=== PATIENT | female | born 1995 | race African-American/Black ===

== ENCOUNTER 2018-07-13 06:13 | Emergency (ER) | payer OTHER ==
[~2018-07-13] VITALS: Ht 162.6 cm; Wt 64.9 kg
[~2018-07-13 06:13] MED LIST: AUG500 PO; CLINDAMYCIN HC300 MG PO; LEVAQUIN750 MG PO; PREDNISONE20 MG; PROVENTIL0.09 MG/A1; SINGULAIR10 MG
[2018-07-13 06:20] VITALS: Ht 162.6 cm; Wt 64.9 kg
[2018-07-13 10:07] VITALS: BP 135/84
== END 2018-07-13 10:00 | disposition home or self-care (01) ==
LOC: ED 06:13
DX: S06.0X0A Concussion without loss of consciousness, initial encounter (principal); S13.4XXA Sprain of ligaments of cervical spine, initial encounter; S93.602A Unspecified sprain of left foot, initial encounter; S23.3XXA Sprain of ligaments of thoracic spine, initial encounter; S33.5XXA Sprain of ligaments of lumbar spine, initial encounter; J45.909 Unspecified asthma, uncomplicated; Z88.1 Allergy status to other antibiotic agents; Z91.013 Allergy to seafood; V43.52XA Car driver injured in collision with other type car in traffic accident, initial encounter; Y93.I9 Activity, other involving external motion; Y92.488 Other paved roadways as the place of occurrence of the external cause; Y99.8 Other external cause status

== ENCOUNTER 2018-12-18 06:24 | Emergency (ER) | payer OTHER ==
[~2018-12-18] VITALS: Ht 162.6 cm; Wt 66.7 kg
[2018-12-18 06:27] VITALS: Ht 162.6 cm; Wt 66.7 kg
[2018-12-18 07:22] LABS: microscopic required? NO
[2018-12-18 08:03] LABS: CALCIUM 8.8 mg/dL (8.5-10.1); CARBON DIOXIDE 26.9 mmol/L (21-32); CHLORIDE SERUM 109 mmol/L (98-107); CREATININE SERUM 1.1 mg/dL (0.6-1.0); GFR1 > 60 mL/min; GLUCOSE SERUM 89 mg/dL (74-106); POTASSIUM SERUM 3.8 mmol/L (3.5-5.1); SODIUM SERUM 145 mmol/L (136-145)
[2018-12-18 08:04] LABS: urine erythrocyte NEGATIVE (NEGATIVE)
[2018-12-18 08:08] LABS: ALBUMIN 3.4 g/dL (3.4-5.0); ALKALINE PHOSPHATASE 51 U/L (46-116); ALT/SGPT 29 U/L (14-59); AST/SGOT 15 U/L (15-37); BILIRUBIN TOTAL 0.2 mg/dL (0.20-1.00); LIPASE 128 IU/L (73-393)
[2018-12-18 08:10] LABS: BASOPHIL % 0.4 % (0-2); PLATELET COUNT 326 x10^3mcL (130-400); RED CELL DISTRIBUTION WIDTH 13.2 % (11.5-14.5)
[2018-12-18 08:24] LABS: AMPHETAMINE QUAL UR NONE DETECTED (See below)
[2018-12-18 09:20] VITALS: BP 134/92
== END 2018-12-18 09:20 | disposition home or self-care (01) ==
LOC: ED 06:24
PROVIDERS: Emergency Medicine
DX: R11.10 Vomiting, unspecified (principal); R19.7 Diarrhea, unspecified; R10.13 Epigastric pain; J45.909 Unspecified asthma, uncomplicated; L30.9 Dermatitis, unspecified; Z88.0 Allergy status to penicillin; Z91.013 Allergy to seafood
CPT/HCPCS: J2405; J3490; J7030

== ENCOUNTER 2019-01-26 00:40 | Emergency (ER) | payer OTHER ==
[~2019-01-26] VITALS: Ht 165.1 cm; Wt 67.1 kg
[2019-01-26 00:42] VITALS: Ht 165.1 cm; Wt 67.1 kg
[2019-01-26 02:02] LABS: UA SPECIFIC GRAVITY >=1.030 (1.005-1.035); microscopic required? YES; urine erythrocyte 3+ (NEGATIVE)
[2019-01-26 02:55] VITALS: BP 125/77
== END 2019-01-26 02:55 | disposition home or self-care (01) ==
LOC: ED 00:40
PROVIDERS: Specialist
DX: N39.0 Urinary tract infection, site not specified (principal); J45.909 Unspecified asthma, uncomplicated; Z88.1 Allergy status to other antibiotic agents; Z88.8 Allergy status to other drugs, medicaments and biological substances

== ENCOUNTER 2019-03-21 21:13 | Emergency (ER) | payer OTHER ==
[~2019-03-21] VITALS: Ht 162.6 cm; Wt 65.5 kg
[2019-03-21 21:17] VITALS: Ht 162.6 cm; Wt 65.5 kg
[2019-03-22 00:40] LABS: BASOPHIL % 0.5 % (0-2); PLATELET COUNT 295 x10^3mcL (130-400); RED CELL DISTRIBUTION WIDTH 13.5 % (11.5-14.5)
[2019-03-22 00:54] LABS: UA SPECIFIC GRAVITY 1.015 (1.005-1.035); microscopic required? YES; urine erythrocyte NEGATIVE (NEGATIVE)
[2019-03-22 00:59] LABS: ALBUMIN 3.5 g/dL (3.4-5.0); BILIRUBIN TOTAL 0.17 mg/dL (0.20-1.00); CALCIUM 8.5 mg/dL (8.5-10.1); CARBON DIOXIDE 26.3 mmol/L (21-32); CREATININE SERUM 1.2 mg/dL (0.6-1.0); TOTAL PROTEIN, SERUM 7.8 g/dL (6.4-8.2)
[2019-03-22 02:53] VITALS: BP 129/71
== END 2019-03-22 02:53 | disposition home or self-care (01) ==
LOC: ED 21:13
PROVIDERS: Student in an Organized Health Care Education/Training Program
DX: J45.901 Unspecified asthma with (acute) exacerbation (principal); J18.9 Pneumonia, unspecified organism; R10.11 Right upper quadrant pain; R11.0 Nausea; Z88.0 Allergy status to penicillin; Z91.018 Allergy to other foods
CPT/HCPCS: 87804; J1885; J2930; J7030; J7613; J7620; J7644; Q0092

== ENCOUNTER 2019-05-24 10:32 | Emergency (ER) | payer OTHER ==
[~2019-05-24] VITALS: Ht 165.1 cm; Wt 67.6 kg
[2019-05-24 10:38] VITALS: Ht 165.1 cm; Wt 67.6 kg
[2019-05-24 12:58] LABS: BASOPHIL % 0.3 % (0-2); PLATELET COUNT 346 x10^3mcL (130-400); RED CELL DISTRIBUTION WIDTH 14.2 % (11.5-14.5)
[2019-05-24 13:05] LABS: CALCIUM 9.1 mg/dL (8.5-10.1); CARBON DIOXIDE 23.6 mmol/L (21-32); CHLORIDE SERUM 104 mmol/L (98-107); GFR1 > 60 mL/min; GLUCOSE SERUM 78 mg/dL (74-106); POTASSIUM SERUM 3.9 mmol/L (3.5-5.1); SODIUM SERUM 138 mmol/L (136-145)
[2019-05-24 13:09] LABS: ALBUMIN 3.8 g/dL (3.4-5.0); ALKALINE PHOSPHATASE 55 U/L (46-116); ALT/SGPT 20 U/L (14-59); AST/SGOT 22 U/L (15-37); BILIRUBIN TOTAL 0.3 mg/dL (0.20-1.00)
[2019-05-24 13:10] LABS: TOTAL PROTEIN, SERUM 8.3 g/dL (6.4-8.2)
[2019-05-24 16:03] VITALS: BP 142/88
== END 2019-05-24 16:04 | disposition home or self-care (01) ==
LOC: ED 10:32
DX: K59.00 Constipation, unspecified (principal); J45.909 Unspecified asthma, uncomplicated; Z88.0 Allergy status to penicillin; Z91.013 Allergy to seafood
CPT/HCPCS: J2405; J7030